=== PATIENT | female | born 1965 | race Caucasian/White ===

== ENCOUNTER 2021-08-31 11:45 | Observation (INO) | payer OTHER ==
[~2021-08-31] VITALS: Ht 172.7 cm; Wt 100.2 kg
[2021-08-31] MEDS ORDERED: LISINOPRIL10 MG PO (12:49)
--- NOTE | 2021-08-31 15:39 | EKG ---
[facility] [address] [facility] [place], [place] [address] Signed Normal sinus rhythm Left anterior fascicular block Left ventricular hypertrophy with QRS widening ( R in aVL , Stewart product ) T wave abnormality, consider lateral ischemia Prolonged QT Abnormal ECG No previous ECGs available Confirmed by ZUHAIR HARLEY MD ([id number]) on 08/31/2021 3:39:03 PM Electronically Signed By: ZUHAIR HARLEY MD 08/31/21 1539 PATIENT NAME: CAROL FERNANDEZ JUAN RAMON Electrocardiogram DATE OF : 63 PHYSICIAN: ZUHARI HARLEY MD REPORT #: [id number] REPORT IS CONFIDENTIAL AND NOT TO BE RELEASED WITHOUT AUTHORIZATION
--- NOTE | 2021-08-31 16:10 | NUR ---
PT ADMITTED TO THE FLOOR FROM THE ER, WAITING FOR DR HUANG TO SEE, COMPLAINING OF ABD PAIN, PRN DILAUDID GIVEN, NS @125, EDUCATED PRAWN TRAWLER HAND LIGHT AND SAFTEY PRECAUTIONS DENIES ANY NEEDS
--- NOTE | 2021-08-31 17:00 | NUR ---
Dr morley in room rounding on pt.
--- NOTE | 2021-08-31 19:00 | NUR ---
dr morley called and notified of pt temp 102, tylenol administered , no new orders .
--- NOTE | 2021-08-31 19:10 | NUR ---
SHIFT REPORT RECEIVED FROM DAYSHIFT LUIS FERNANDO GARCIA AT BEDSIDE. pt RESTING IN BED, EYES CLOSED. RR EVEN AND UNLABORED, NO DISTRESS NOTED. AWOKE TO VOICE. DENIES PAIN AT IV SITE, IV FLUIDS INFUSING DIRECTED. CALL LIGHT IN REACH. NO FURTHER NEEDS VERBALIZED.
--- NOTE | 2021-08-31 21:17 | NUR ---
IN ROOM TO ADMINISTER EVENING MEDICATIONS FOR PRIMARY RN JESSICA. VS TAKEN AND ENTERED PRIMARY RN NOTIFIED OF TEMP, INSTRUCTED PT HOW TO USE I.S. VASOTEC ADMINISTERED IV DILUTIED SLOW PUSH OVER 5 MIN. PT ALSO REPORTS PAIN 6/10, ADMINISTERED 0.5MG IV DILUADID DILUTED SLOW PUSH. FRESH ICEWATER PROVIDED AND PT DENIES FURTHER NEEDS. CALL LIGHT IS CLOSE.
--- NOTE | 2021-08-31 22:40 | NUR ---
assessment complete, scheduled meds already given by chargeback specialistjuan smith. pt recently given prn pain medication, appears comfortable and relaxed at this time, no distress noted. face flushed, pt reports she has somewhat flsuhed face at baseline, will monitor. temp remains elevated but lowering, will monitor. prn tylenol given prior to shift change. iv site wnl, iv fluids and potassium rider both infusing as directed.
--- NOTE | 2021-08-31 22:45 | NUR ---
DR HUANG MADE AWARE OF ELEVATED TEMP, MOST RECENT 100.8. TELEPHONE ORDERS READ BACK FOR PO MOTRIN 800 MG Q6HPRN FOR TEMP AND 30MG IV TORADOL Q8H PRN FOR TEMP/PAIN. ALSO RECEIVED TELEPHONE ORDERS READ BACK FOR SET OF BLOOD CULTURES. pt RECEIVING POTASSIUM RIDER 60MG IV, APPROX 40MG IV HAVE INFUSED, PER POLICY ROUTINE DRAW ORDERED. LAB TO COLLECT. pt UPDATED W/ POC, INSPECTOR FILTER TIPLUIS FERNANDO HANNA ALSO UPDATED.
--- NOTE | 2021-09-01 00:10 | NUR ---
pt NPO AT THIS TIME. DIET ORDER UPDATED. SCRAP WORKER AWARE.
--- NOTE | 2021-09-01 00:39 | NUR ---
prn pain medication given for 7/10 abd pain, see emar. no further neds or concerns verbalized. temp rechecked, result of 99.9.
--- NOTE | 2021-09-01 01:14 | NUR ---
ROUNDED ON pt, pt RESTING IN BED WITH EYES CLOSED. RR EVEN AND UNLABORED. NO DISTRESS NOTED, ON RA. IV SITE REMAINS WNL, FLUIDS INFUSING DIRECTED. CALL LIGHT IN REACH.
--- NOTE | 2021-09-01 03:15 | NUR ---
in room to medicate pt. due to pt being NPO and temp fluctating asked patient if we can give her a tylenol suppository. pt immediately declines this.
--- NOTE | 2021-09-01 04:08 | NUR ---
NEW BAG IV FLUIDS HUNG AND INFUSING DIRECTED, IV SITE REMAINS WNL. pt EDUCATED ON POC REGARDING PRN SUPP TYLENOL AND TEMP FLUCUATIONS- INFORMED BY MANDIE GOULD pt REFUSED PRN SUPP TYLENOL. WILL MONITOR AND RECHECK VS, THEN REASSESS NEED. pt AGREES TO POC. NO FURTHER NEEDS, pt REPORTS MINIMAL PAIN R/T HEADACHE. COOL RAG PROVIDED TO FOREHEAD.
--- NOTE | 2021-09-01 04:40 | NUR ---
rounded on pt, temp improving and lowering- now 99.3. will hold on prn tylenol at this time and continue to monitor. call light in reach.
--- NOTE | 2021-09-01 05:00 | NUR ---
assessment complete, no acute changes. pt reports pain improved and describes as tolerable and rates at 4/10, denies need for apin medication. some abd tenderness noted, denies nasuea. iv site remains wnl. no further need, pt remains npo. call light in reach.
--- NOTE | 2021-09-01 06:12 | NUR ---
preproedure checklist started and lr with straight tubing primed and hanging in room for procedure.
--- NOTE | 2021-09-01 06:18 | CONS ---
[facility] [address] [place], [place] [address] Signed DATE OF CONSULTATION: 08/31/2021 CHIEF COMPLAINT: Epigastric and right upper quadrant abdominal pain. HISTORY OF PRESENT ILLNESS: Carol is a 56-year-old obese female, who awoke at about 2 in the morning with epigastric pain and right upper quadrant abdominal pain radiating through to her back. She was having nausea and vomiting. They had eaten rotisserie chicken that night for supper. They thought maybe it was food poisoning. She came to emergency room finally for evaluation when her symptoms would not lalitha. Her white count was borderline at 10.8 and her potassium was low at 3.0 from the vomiting. The bilirubin was fine, but the AST and ALT were a little elevated, the alkaline phosphatase was 86, albumin is 3.8, and lipase is good at 42. COVID test is negative. Chest x-ray unremarkable, but the ultrasound showed that the gallbladder was a little distended, although the gallbladder wall is not particularly thickened. There is some sludge in her gallbladder and common bile duct just a little dilated at 7.8 mm. I have been asked to admit her as a general surgeon on-call. In the meantime, she has received Levaquin and Flagyl and some Dilaudid. Overall, she is feeling better. She said her mouth is still dry and she still feels dehydrated. Her boyfriend of 17 years is in the room along with her sister. PAST MEDICAL HISTORY: Hypertension, obesity, and lumbago following a fall. PAST SURGICAL HISTORY: Includes the D and C. SOCIAL HISTORY: She does not smoke. She has a few drinks on the weekend. She uses some CBD products for her chronic back pain. Her boyfriend is Jasbir at [phone] and her sister is Ashli Robles at [phone]. Her primary care provider is Elana Dinh. 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 FAMILY HISTORY: Mom has non-Hodgkin's lymphoma. REVIEW OF SYSTEMS: She had 10 systems reviewed and she mentioned the chronic pain in her back after falling down some stairs. ALLERGIES: Penicillin, Augmentin, and sulfa. Electronically Signed By: PATRICK HUANG MD 09/01/21 0618 PATIENT NAME: CAROL FERNANDEZ CONSULTATION DATE OF : 63 REPORT #: [id number] PHYSICIAN: PATRICK HUANG MD PCP: ELANA DINH PAC REPORT IS CONFIDENTIAL AND NOT TO BE RELEASED WITHOUT AUTHORIZATION [facility] [address] [place], [place] [address] Signed MEDICATIONS: Lisinopril 10 mg p.o. daily. PHYSICAL EXAMINATION: VITAL SIGNS: Her blood pressure is 156/76, heart rate 86, respiratory rate 20, temperature is 99.9. She is 96% on room air. She is 5 feet 8 inches at 100 kg. GENERAL: Carol is a 56-year-old female, who currently is lying supine in sleeping in her hospital bed. Her boyfriend, Jasbir and her sister, Ashli are in the room. We talked actually for quite sometime before Carol finally woke up with the help of her sister. She has clearly been given some Dilaudid. She said the pain is a little better, but she is quite dehydrated, was asking for some ice chips. LUNGS: Clear to auscultation. HEART: Slightly fast, but not tachycardic. ABDOMEN: Obese, but soft. She does have some tenderness in the right upper quadrant, although not markedly so. LABORATORY DATA: Her white blood count 10.8, neutrophils 90, hemoglobin 14, potassium 3.0, BUN 11, creatinine 0.62. COVID is negative. Total bilirubin 1.0, ALT 61, AST is 126, alkaline phosphatase 86, albumin 3.8. Her lipase is 42. RADIOGRAPHIC STUDIES: Chest x-ray was unremarkable. The ultrasound shows some sludge in the gallbladder, but the gallbladder wall is not thickened, although it is a little dilated. The common bile duct is a little dilated at 7.8 mm. ASSESSMENT AND PLAN: Carol is a 56-year-old obese female, who presents with symptomatic cholecystitis cholelithiasis in the form of sludge. She is dehydrated and clearly has hypokalemia. She is quite a bit more comfortable now with the Dilaudid. I explained to Carol and her family we really need to get her rehydrated and correct the potassium overnight and we will plan on doing her surgery first thing in the morning. I brought with me a brochure on the gallbladder. We have reviewed the brochure in detail including the location and function of the gallbladder. We discussed laparoscopic versus open cholecystectomy. There is risk to the surgery including, but not limited to bleeding, infection, scarring, change in contour of the skin, damage to bowel, damage to main bile duct, incisional hernias and other unforeseen comorbidities. They have expressed understanding and agreed to above plan. Patrick Huang MD Electronically Signed By: PATRICK HUANG MD 09/01/21 0618 PATIENT NAME: CAROL FERNANDEZ CONSULTATION DATE OF : 63 REPORT #: [id number] PHYSICIAN: PATRICK HUANG MD PCP: ELANA DINH REPORT IS CONFIDENTIAL AND NOT TO BE RELEASED WITHOUT AUTHORIZATION [address] [place], [place] [address] Signed ALB/MODL /[id number] cc: MD Elana Haas PA-C Copies: PATRICK HUANG MD, ERIKA PAC ~ Electronically Signed By: PATRICK HUANG MD 09/01/21 0618 PATIENT NAME: CAROL FERNANDEZ CONSULTATION DATE OF : 63 REPORT #: [id number] PHYSICIAN: PATRICK HUANG MD PCP: ELANA DINH PAC REPORT IS CONFIDENTIAL AND NOT TO BE RELEASED WITHOUT AUTHORIZATION
--- NOTE | 2021-09-01 06:20 | NUR ---
dr morley in room with pt. made aware of pt's trending temp after motrin administration. am potassium pending, aware and updated on voids this shift (700 plus 600).
--- NOTE | 2021-09-01 06:45 | NUR ---
IN TO ASSIST PT WITH PRE-OP [place], NEW LINENS ON THE BED, PT BACK TO BED, NO FURTHER NEEDS AT THIS TIME
--- NOTE | 2021-09-01 07:04 | NUR ---
pt TAKEN OFF [facility] FLOOR AND HEADING TO OR FOR SURGERY. 0800 FLAGYL PULLED AND GIVEN TO MECHANICAL SYSTEMS CONTROL ENGINEER LA PER RN REQUEST.
--- NOTE | 2021-09-01 07:15 | NUR ---
report recieved from physician compensation analyst RN, pt off the floor for surgery.
--- NOTE | 2021-09-01 10:02 | NUR ---
09/01/21 Melina Gallego 0915- PT ARRIVES TO PACU NONAROUSABLE TO NOXIOUS STIMULI WITH AN OPA IN PLACE. RESP RAPID AND SHALLOW. PT ALSO HAD NOISE COMING FROM THE AIRWAY THAT DID NOT CLEAR WITH A JAW THRUST. OXYGEN SAT HIGH 80'S ON 10L VIA MASK. OXYGEN TURNED UP TO 15L VIA MASK. EXPIRATORY WHEEZE HEARD IN THE BILATERAL LOWER LUNG ORTIZ. LOADING INSPECTOR AT THE BEDSIDE AND AWARE. NEW ORDERS RECEIVED. JAW THRUST BEING MAINTAINED TO KEEP AIRWAY OPEN.
--- NOTE | 2021-09-01 10:20 | NUR ---
pt back from surgery, slighly drowsy on 3L nc, awakens to family memebers in room, 3lap sites covered with 2*2 and silk tape, R upper quadrant kenny drain, no pain at the moment. lungs clear, bowels active restarted on her iv fluids, morning medications given.
--- NOTE | 2021-09-01 11:14 | NUR ---
POST OP VITALS DUE. THIS RN TO ROOM TO ASSIST PER PTS PRIMARY RN'S REQUEST. PT ALERT AND OREINTED. PT TALKING WITH FAMILY. PT DENIES PAIN AND NASUEA AT THIS TIME. VITAL SIGNS STABLE. PT WEANED TO 2L O2 BY NC WITH OXGYEN SATUARTIONS REMAINING ABOVE 94%. PT DEMONSTRATES USE OF I.S. REACHING 1250ML X5. PT EDUCATION DONE REGARDING POST OF CARE AND LIFTING RESTRICTIONS. PT DENIES ADDITIONAL REQUESTS OR COMPLAINTS. CALL LIGHT WITHIN REACH. BED RAILS UP.
--- NOTE | 2021-09-01 12:20 | NUR ---
RN IN ROOM TO DO POST OP VITAL SIGNS, PT ASSITED UP TO THE BATHROOM ABLE TO VOID 800, FRESH ICE PACK PROVIDED, CLEAR LIQUID TRAY PROVIDED, STATES PAIN IS UNDER CONTROL.
--- NOTE | 2021-09-01 13:23 | NUR ---
POST OP VITALS COMPLETED AND WNL. PT DENIES PAIN OR NASUEA. CLEAR LIQUID TRAY IN FRONT OF PT. ICE TO ABDOMEN. DRESSING X4 TO ABDOMEN AND C/D/I WITH SCANT SHADOWING. CALL LIGHT IN REACH
--- NOTE | 2021-09-01 13:45 | NUR ---
Spoke with pt and she lives in a 2 story home with her laundry in the basement. She has had rails and does not have issues with stairs. Daughter and sister will help her if needed. She denies financial issues. Plans on dc to home when cleared medically.
--- NOTE | 2021-09-01 14:30 | NUR ---
rn in room to round on pt, sitting up in bed drinking beef broth, assited to get up to the bathroom, kenny drain dressing changed as pt was leaking, 2 split gauze and tegaderm placed, prn motrin provided
[2021-09-01] MEDS ORDERED: ALPRAZOLAM ER0.5 MG PO (14:47)
[2021-09-01] MEDS ORDERED: LISINOPRIL-HCT1 EAC2 PO (14:47)
[2021-09-01] MEDS ORDERED: CLINPRO 5000113 GM MM (14:48)
[2021-09-01] MEDS ORDERED: VITAMIN D3125 MCG PO (15:27)
[2021-09-01] MEDS ORDERED: CO Q-10100 MG PO (15:32)
[2021-09-01] MEDS ORDERED: ZINC GLUCONATE100 MG PO (15:32)
[2021-09-01] MEDS ORDERED: FLAX SEED OIL1 EACH PO (15:33)
[2021-09-01] MEDS ORDERED: MILK THISTLE150 MG PO (15:38)
[2021-09-01] MEDS ORDERED: [UNRECOGNIZED DRUG - OTHER] PO (15:38)
[2021-09-01] MEDS ORDERED: ZYRTEC10 MG PO (15:39)
[2021-09-01] MEDS ORDERED: MAGNESIUM400 M1 PO (15:39)
[2021-09-01] MEDS ORDERED: TART CHERRY CA1 EACH PO (15:40)
[2021-09-01] MEDS ORDERED: FOLTANX TABLET1 EACH PO (15:49)
[2021-09-01] MEDS ORDERED: VITAMIN B-650 MG PO (15:49)
--- NOTE | 2021-09-01 15:50 | NUR ---
MED REC COMPLETE
--- NOTE | 2021-09-01 18:00 | NUR ---
RN REPORTED BY LUIS FERNANDO TONG PT COMPLAINING OF MORE PAIN, PRN NORCO PROVIDED , PT RESTING IN BED, INCISONS CDI, NO NAUSEA AT THE MOMENT, UP TO THE BATHROOM. NO OTHER NEEDS AT THE MOMENT
--- NOTE | 2021-09-01 19:25 | NUR ---
BEDSIDE REPORT FROM JOSE GOULD, PT ALERT AND ORIENTED. SHE HAS NO COMPLAINTS ASKED FOR MORE ICE WATER, THIS IS PROVIDED. SHE HAS BEEN INDEPENDENT TO THE BATHROOM.
--- NOTE | 2021-09-01 19:49 | NUR ---
PT'S IV PUMP WAS BEEPING, IT IS NOW INFUSING FINE. PROVIDED FRESH ICEWATER FOR PT AND SHE DENIES FURTHER NEEDS. PT STATES SHE IS ENJOYING HER STAY HERE. CALL LIGHT IS CLOSE.
--- NOTE | 2021-09-01 20:54 | NUR ---
IN ROOM TO HANG NEW BAG OF D5LR@100MLS/HR. PT DENIES FURTHER NEEDS. CALL LIGHT IS CLOSE.
--- NOTE | 2021-09-02 01:22 | NUR ---
PT CALLED NURSES STATION DUE TO IV PUMP BEEPING, JESSICA RN INTO ASSESS, IV PUMP BATTERY FAILURE. NEW IV PUMP OBTAINED AND SET.
--- NOTE | 2021-09-02 07:11 | OR ---
[facility] [address] [place], [place] [address] Signed DATE OF OPERATION: 09/01/2021 SURGEON: Patrick Huang MD PREOPERATIVE DIAGNOSIS: Kseqc-es-mysaqwt cholecystitis, cholelithiasis, and sludge. POSTOPERATIVE DIAGNOSIS: Fqizc-dx-qhvyecu cholecystitis, cholelithiasis, and sludge. PROCEDURES: 1. Laparoscopic cholecystectomy without intraoperative cholangiogram (prolonged and difficult at 1 hour and 25 minutes). 2. Subhepatic drain placement. ESTIMATED BLOOD LOSS: Minimal. FINDINGS: Carol indeed had severe ribgf-cq-ebhlqie cholecystitis. She had one stone about 12 mm in diameter lodged in the neck of the gallbladder. In that regard, her bile was completely clear without any pigment whatsoever. She had tremendous inflammatory changes throughout the entire gallbladder and triangle of Calot. Consequently, we abandoned the intraoperative cholangiogram. We needed an additional nurse to scrub in with an additional port and fan retractor to access the triangle of Calot. It took 1 hour and 25 minutes to complete the surgery in a very slow meticulous manner. This was well over 25 minutes longer than usual. In this way, her procedure was prolonged and difficult. INDICATIONS: Carol is a 56-year-old obese female, who developed at least a 1-day history of epigastric and right upper quadrant abdominal pain with nausea and vomiting. Her symptoms would not lalitha, so she came to emergency room for evaluation. Her white count was 10.8, but she had a left shift with neutrophils of 90. Her potassium was low at 3.0 from her vomiting. COVID was negative. Total bilirubin was 1, but the AST was 61, ALT 126, alkaline phosphatase is 86, albumin 3.8, and lipase 42. Chest x-ray was unremarkable. She certainly was tender in the right upper quadrant, ultrasound confirmed sludge in the gallbladder. Common bile duct seemed to be slightly dilated at 7.8 mm. The gallbladder wall did not appear to be overtly thickened. There was some mild pericholecystic inflammatory changes in her fluid. I have been asked to admit her Electronically Signed By: PATRICK HUANG MD 09/02/21 0711 PATIENT NAME: CAROL FERNANDEZ OPERATIVE REPORT DATE OF : 63 REPORT #: [id number] PHYSICIAN: PATRICK HUANG MD PCP: CRISS DELACRUZ PAC REPORT IS CONFIDENTIAL AND NOT TO BE RELEASED WITHOUT AUTHORIZATION [facility] [address] [place] [id number] Signed last night as a general surgeon on-call. I met with Carol and her family last night to include her boyfriend and her sister, Ashli. I brought with me a brochure and we reviewed the above findings in the brochure in detail. We discussed laparoscopic versus open cholecystectomy. We reviewed the expected intraop and postop course. There is risk including, but not limited to bleeding, infection, scarring, change in contour of the skin, damage to bowel, damage to main bile duct, incisional hernias and other unforeseen comorbidities. Overnight, she was given Levaquin and Flagyl and hydrated with lactated Ringer's along with additional infusion of potassium. Even this morning, her potassium had not corrected; however, she looked and felt much better. After conferring with her and our OR team include our anesthesia provider, we decided we would bring her down this morning for our first case for her surgery. She had expressed understanding and wished to proceed. DESCRIPTION OF PROCEDURE: Craol had been taken in the operating room and placed in the supine position under general endotracheal tube anesthesia. She was already on preoperative Lovenox along with her SCDs. She already had her Levaquin and Flagyl. We gave her additional doses as we went through the case. She had been prepped and draped in the usual sterile fashion. One could feel the gallbladder after she was pharmacologically paralyzed just below the right subcostal margin. We placed all trocars in our usual positions. Her sister asked me to look down in the right lower quadrant with the camera, that was all quite healthy-appearing and seemed to be uninvolved. After this, we had to carefully elevate the gallbladder into the right upper quadrant, it was quite tense. We created a small hole near the top with our cautery and suctioned out copious amounts of clear liquid thick bile. We found that she did indeed have just one stone in the neck of her gallbladder, it was probably 12 mm in diameter. We had to bring another nurse to help with retraction. We introduced our fan retractor through the midline in the epigastric area. We also placed an orogastric tube to draw the air out of her stomach, so we could better visualize the very inflamed triangle of Calot. We very carefully and meticulously dissected out the triangle of Calot until we were quite confident we had the cystic duct isolated. We had placed a couple of clips across the cystic artery and it had been divided. Because of the tremendous inflammatory changes and the short amount of cystic duct, we had dissected free, we decided not to pursue the cholangiogram at this time. We placed three sequential clips across the cystic duct. Each clip went completely across the cystic duct. We then carefully divided the cystic duct sharply with the scissors. We were quite confident in this regard. We then very carefully and slowly dissected out the gallbladder from the gallbladder fossa. There were tremendous inflammatory changes and it took extra time. Eventually, we had the gallbladder completely free and we placed it into an EndoCatch bag. We then irrigated and suctioned out the right upper quadrant until mostly clear. We placed a #10 flat Rogerio drain along the area of the cystic duct stump and we brought it out through the right most lateral 5 mm trocar site. We then used our laparoscopic suturing device to pass 0-Vicryl suture Electronically Signed By: PATRICK HUANG MD 09/02/21 0711 PATIENT NAME: CAROL FERNANDEZ OPERATIVE REPORT DATE OF : 63 REPORT #: [id number] PHYSICIAN: PATRICK HUANG MD PCP: CRISS DELACRUZ PAC REPORT IS CONFIDENTIAL AND NOT TO BE RELEASED WITHOUT AUTHORIZATION [address] [address] Signed on either side of the fascia of the subxiphoid in the mid epigastric trocar sites. These were tied down to close the fascia primarily. After this, all the gas was allowed to escape and the remaining two trocars were removed. We had passed the gallbladder off the table for photodocumentation. We then closed the fascia of the supraumbilical trocar site with interrupted [id number] and simple 0-Vicryl sutures. Local anesthetic was injected in all trocar sites. Each trocar site was irrigated and suctioned out until clear. We closed the skin and dermis of each trocar site with interrupted 3-0 subcuticular Monocryl sutures. Dry gauze and tape were applied to all incisions. We used a 2-0 nylon suture to hold the drain in place at the level of the skin. After this, she was awakened from anesthesia, extubated in the OR, and taken to the recovery in stable condition. Patrick Huang MD ALB/MODL /[id number] cc: MD Criss Haas PA-C Patient's Chart Copies: PATRICK HUANG MD, ERIKA PAC ~ Electronically Signed By: PATRICK HUANG MD 09/02/21 0711 PATIENT NAME: CAROL FERNANDEZ OPERATIVE REPORT DATE OF : 63 REPORT #: [id number] PHYSICIAN: PATRICK HUANG MD PCP: CRISS DELACRUZ REPORT IS CONFIDENTIAL AND NOT TO BE RELEASED WITHOUT AUTHORIZATION
--- NOTE | 2021-09-02 07:15 | NUR ---
bedside report recieved from night custodian RN, pt resting in bed, remains on continous pulse oximeter, room air 96%, call light within reach no needs at the moment
[2021-09-02] MEDS ORDERED: HYDROCODON-ACE1 EAC8 PO (08:26)
[2021-09-02] MEDS ORDERED: LEVOFLOXACIN500 MG PO (08:27)
--- NOTE | 2021-09-02 08:30 | NUR ---
RN IN ROOM TO DO MORNING ASSESMENT AND MEDICATIONS PT RESTING IN BED, DENEIS PAIN AT THE MOMENT JUST SORE, OFFERED SOFT DIET OPTIONS FOR BREAKFAST, ONLY WANTS TOAST, PLAN FOR DC TODAY AFETR IV ABX AND ELECTROLYTE REPLACEMENT.
[2021-09-02] MEDS ORDERED: METRONIDAZOLE500 MG PO (08:36)
[2021-09-02] MEDS ORDERED: MOTRIN IB200 M1 PO (08:37)
[2021-09-02] MEDS ORDERED: PAIN RELIEVER325 MG PO (08:38)
--- NOTE | 2021-09-02 09:48 | NUR ---
PATIENT IN BED RESTING AT THIS TIME, VISITOR IN ROOM. VITALS AND I&O'S CHARTED. PATIENT COMPLAINS OF A LITTLE PAIN AROUND BARBARA DRAIN SITE, RN NOTIFIED. AM CARE AND ORAL CARE SUPPLIES PROVIDED IN BATHROOM, PATIENT IND. CALL LIGHT IN REACH. NO FURTHER NEEDS AT THIS TIME.
--- NOTE | 2021-09-02 12:40 | NUR ---
rn in room to go over pt dc instructions, education provided for drain care and incision care, sister at bedside and all questions answred
--- NOTE | 2021-09-04 08:39 | DS ---
[facility] [address] [place], [place] [address] Signed ADMISSION DATE: 08/31/2021 DISCHARGE DATE: 09/02/2021 FINAL DIAGNOSES: 1. Severe acute on chronic cholecystitis and cholelithiasis. 2. Anemia. 3. Hypokalemia. 4. Hypomagnesemia. PROCEDURES: 1. Laparoscopic cholecystectomy without intraoperative cholangiogram. 2. Subhepatic drain placement. HISTORY OF PRESENT ILLNESS: Carol is a 56-year-old obese female, who fell over her dogs and went down the stairs last fall and injured her back. She has been having back pain since that time. She has had persistent back pain higher up in the right shoulder blade area. She finally developed nausea and vomiting and epigastric and right upper quadrant abdominal pain as well. She came to the emergency room for evaluation. In the emergency room, she was tender in the right upper quadrant with a left shift with slight increase in her liver function test. Ultrasound confirmed what appeared to be sludge in her gallbladder but the gallbladder wall did not appear particularly thickened. The common bile duct seemed to be a little dilated at 7.8 mm. No mention of any stones. I have been asked to admit her as a general surgeon on-call. She had been given Levaquin and Flagyl and Dilaudid in the emergency room. HOSPITAL COURSE: Carol had been admitted as above. I met with Carol and her family in the evening. She was quite dehydrated and her potassium was low. We hydrated her overnight and gave her IV potassium. By morning, she was much better, although the potassium really had not changed much. I think her potassium is fairly low from all of her vomiting. We then took her to the operating room that morning. She underwent a very difficult and prolonged surgery to remove her rather severely inflamed gallbladder. We did not perform an intraoperative cholangiogram due to the tremendous inflammatory changes in the triangle of [place]. We did place a drain. She clearly had acute on chronic cholecystitis. There was one large stone in the neck of the gallbladder. She did well both intraop and postop. This morning, she is markedly improved. Of course, the potassium is still low and her magnesium is a bit low. We will go ahead and supplement that today with oral tablets. She is a little puffy from all of her IV fluids, but overall is much better hydrated. Her hemoglobin is a little low as well. She is tolerating her clear liquids and is having good pain control with her [place]. All Electronically Signed By: PATRICK HUANG MD 09/04/21 0839 PATIENT NAME: CAROL FERNANDEZ DISCHARGE SUMMARY DATE OF : 63 REPORT #: [id number] PHYSICIAN: PATRICK HUANG MD PCP: CRISS DELACRUZ PAC REPORT IS CONFIDENTIAL AND NOT TO BE RELEASED WITHOUT AUTHORIZATION [address] [address] Signed incisions are healing well. The abdominal exam is completely benign. At this point, we are going to discharge her to home with her drain in place. She has a thin serosanguineous fluid out from her drain. DISCHARGE PLANS AND MEDICATIONS: Carol is going to be discharged to home with a prescription for [place] 10/325 one tablet p.o. q.6 hours p.r.n. for severe postoperative pain. Dispense 25 tablets with no refills. She will be given Levaquin 500 mg p.o. daily and Flagyl 500 mg p.o. t.i.d. for five days. She can supplement with Tylenol, ibuprofen, Aleve for [id number] postoperative pain. She can continue her lisinopril at home. Her incisions will be left open to air. She will shower and bathe as usual. She can perform her activities of daily living including walking up and down stairs and showering and bathing as usual. She should not do any heavy pushing, pulling, or lifting over about 20 pounds. She is not ready to return to work. She is welcome to do a little work on her computer at home. The nurses will help her with drain care and recording the drain output each day. She will return to the office in 7 to 10 days for followup. She has expressed understanding and agrees with the above plan. Patrick Huang MD ALB/MODL /[id number] cc: MD Criss Haas PA-C Copies: PATRICK HUANG MD, ERIKA PAC ~ Electronically Signed By: PATRICK HUANG MD 09/04/21 0839 PATIENT NAME: CAROL FERNANDEZ DISCHARGE SUMMARY DATE OF : 63 REPORT #: [id number] PHYSICIAN: PATRICK HUANG MD PCP: CRISS DELACRUZ REPORT IS CONFIDENTIAL AND NOT TO BE RELEASED WITHOUT AUTHORIZATION
--- NOTE | 2021-09-05 14:37 | PATH ---
[facility] [address] [facility] [place], [place] [address] Signed SPECIMEN(S): A GALLBLADDER SPECIMEN SOURCE: A. GALLBLADDER CLINICAL HISTORY: Cholecystitis, cholelithiasis. FINAL PATHOLOGIC DIAGNOSIS: Gallbladder, cholecystectomy: - Acute on chronic cholecystitis with mucosal necrosis. - Cholesterolosis. NAL:cml:C2NR MICROSCOPIC EXAMINATION: Histologic sections of all submitted blocks are examined by light microscopy. These findings, together with the gross examination, support the pathologic diagnosis. GROSS DESCRIPTION: The specimen, labeled "LS," and designated on the requisition "gallbladder," is received in formalin and consists of: Specimen: Previously opened gallbladder. Dimensions: 8.6 x 4.4 cm. Serosa: Violaceous and smooth/ragged areas. Cystic Duct: Unobstructed. Calculi: Not grossly identified. Mucosa: [place] and dark brown with roughened appearance; possible devitalized areas. Wall thickness: Up to 0.6 cm. Lymph node: No pericystic lymph nodes are grossly identified. Additional: None. [place] sections are submitted in cassette (A1). AT (under the direct supervision of a pathologist) The Gross Description was prepared using a voice recognition system. The report was reviewed for accuracy; however, sound-alike word errors, addition and/or deletions may occur. If there is any question about this report, please contact Client Services. PERFORMING LABORATORY: The technical component was performed by [employer], [facility] Juan Ortega, PATIENT NAME: CAROL FERNANDEZN PATHOLOGY DATE OF : 63 REPORT #: [id number] PHYSICIAN: WILLIAMS KING PCP: ELANA DELACRUZ PAC REPORT IS CONFIDENTIAL AND NOT TO BE RELEASED WITHOUT AUTHORIZATION [facility] [address] [place], [place] [address] [place] [address] (Legal Support Analyst: Lali Cheng MD; CLIA# [id number]). [facility] [address] [address] (CLIA# [id number]). Diagnostician: Kalie Saab MD Pathologist Electronically Signed 09/05/2021 Copies: ~ PATIENT NAME: CAROL FERNANDEZ PATHOLOGY DATE OF : 63 REPORT #: [id number] PHYSICIAN: WILLIAMS KING PCP: ELANA DELACRUZ PAC REPORT IS CONFIDENTIAL AND NOT TO BE RELEASED WITHOUT AUTHORIZATION
== END 2021-09-02 13:00 | disposition home or self-care (01) ==
LOC: ED 11:45 → MS 11:47
PROVIDERS: ADMIT Colon & Rectal Surgery; ATTEND Colon & Rectal Surgery
PROC: 0FT44ZZ Resection of Gallbladder, Percutaneous Endoscopic Approach (ICD-10-PCS; principal; 2021-09-01 07:30)
DX: K80.12 Calculus of gallbladder with acute and chronic cholecystitis without obstruction (principal); I10 Essential (primary) hypertension; E66.9 Obesity, unspecified; E86.0 Dehydration; E87.6 Hypokalemia; D64.9 Anemia, unspecified; E83.42 Hypomagnesemia; Z88.0 Allergy status to penicillin; Z88.1 Allergy status to other antibiotic agents; Z88.2 Allergy status to sulfonamides; Z88.8 Allergy status to other drugs, medicaments and biological substances; Z20.822 Contact with and (suspected) exposure to COVID-19
CPT/HCPCS: 00790; 36415; 71045; 76705; 80053; 83690; 83735; 84100; 84132; 84484; 85025; 93005; 93010; 96365; 96366; 96372; 96375; 96376; 99285-25; A9270; C9113; C9803; G0378; J0131; J1100; J1170; J1650; J1885; J1956; J2250; J2405; J2704; J3010; J3480; J7030; J7060; J7121; U0003

== ENCOUNTER 2022-07-27 09:54 | Day surgery (SDC) | payer OTHER ==
[~2022-07-27] VITALS: Ht 172.7 cm; Wt 86.2 kg
[~2022-07-27 09:54] MED LIST: ALPRAZOLAM ER0.5 MG PO; CLINPRO 5000113 GM MM; CO Q-10100 MG PO; FLAX SEED OIL1 EACH PO; FOLTANX TABLET1 EACH PO; HYDROCODON-ACE1 EAC8 PO; LEVOFLOXACIN500 MG PO; LISINOPRIL-HCT1 EAC2 PO; LISINOPRIL10 MG PO; MAGNESIUM400 M1 PO; METRONIDAZOLE500 MG PO; MILK THISTLE150 MG PO; MOTRIN IB200 M1 PO; PAIN RELIEVER325 MG PO; TART CHERRY CA1 EACH PO; VITAMIN B-650 MG PO; VITAMIN D3125 MCG PO; ZINC GLUCONATE100 MG PO; ZYRTEC10 MG PO; [UNRECOGNIZED DRUG - OTHER] PO
[2022-07-27] MEDS ORDERED: CO Q-10100 MG PO (10:14)
[2022-07-27] MEDS ORDERED: QUERCETIN500 MG PO (10:15)
[2022-07-27] MEDS ORDERED: MILK THISTLE150 MG PO (10:16)
[2022-07-27] MEDS ORDERED: ON GUARD (10:17)
[2022-07-27] MEDS ORDERED: [UNRECOGNIZED DRUG - OTHER] (10:18)
[2022-07-27] MEDS ORDERED: TART CHERRY E1000 MG PO (10:19)
[2022-07-27] MEDS ORDERED: VITAMIN E1000 UNI1 PO (10:20)
[2022-07-27] MEDS ORDERED: [UNRECOGNIZED DRUG - OTHER] (10:21)
[2022-07-27] MEDS ORDERED: NEXIUM40 MG PO (10:22)
--- NOTE | 2022-07-27 11:36 | NUR ---
07/27/22 1136 Sultana Sapp 1133 PATIENT ARRIVES TO PACU AWAKE BUT DROWSY. RESP EVEN AND UNLABORED, NC AT 3 LITERS.
--- NOTE | 2022-07-30 08:08 | OR ---
[facility] [address] [place], [place] [address] Signed DATE OF OPERATION: 07/27/2022 SURGEON: Yanely Carney MD PREOPERATIVE DIAGNOSIS: Colon screening. POSTOPERATIVE DIAGNOSIS: Pandiverticulosis. PROCEDURE: Total colonoscopy to cecum. ANESTHESIA: Intravenous sedation fentanyl 150 mcg, Versed 9 mg. INDICATION: This 57-year-old white woman is a patient of PATEL Collins. She is referred for screening colonoscopy. She has no family history of colon cancer and no symptoms of bleeding, diarrhea or constipation. She understands the risk of colonoscopy including but not limited to bleeding, infection, and perforation and wished to proceed. FINDINGS: The prep was quite good. Complete colonoscopy was undertaken of the cecum. She had diverticulosis distributed throughout the colon most dominantly in the sigmoid. There was no evidence of polyps or colitis. PROCEDURE IN DETAIL: The patient was brought to the endoscopy suite and placed in lateral decubitus position. Given intravenous sedation to the point of slurred speech and nystagmus. Digital rectal examination was normal. An Olympus video colonoscope was passed in the rectum and manipulated throughout the colon noting diverticula of the sigmoid and left colon. The scope was ultimately advanced to the cecum. The ileocecal valve and appendiceal orifice were normal. The scope was withdrawn from that point. Examination throughout confirmed scattered diverticulitis throughout the right transverse colon, but more so in the left and sigmoid. Retroflexed view of the rectum was normal. The scope was removed. The patient was taken to the recovery room in good condition. Electronically Signed By: YANELY CARNEY MD 07/30/22 0808 PATIENT NAME: CAROL FERNANDEZ OPERATIVE REPORT DATE OF : 63 REPORT #: [id number] PHYSICIAN: YANELY CARNEY MD PCP: CRISS DINH REPORT IS CONFIDENTIAL AND NOT TO BE RELEASED WITHOUT AUTHORIZATION [facility] [address] [place] [address] [place], [place] [address] Signed CONCLUDING DIAGNOSIS: Diverticulosis. PLAN: Recommend repeat colonoscopy in 10 years, sooner if clinically indicated. We would recommend high-fiber diet as well. She will be given a diverticulosis handbook. MD JOHN Orosco/EDY /[id number] cc: Criss Dinh PA-C Copies: CRISS DINH ~ Electronically Signed By: YANELY CARNEY MD 07/30/22 0808 PATIENT NAME: CAROL FERNANDEZ OPERATIVE REPORT DATE OF : 63 REPORT #: [id number] PHYSICIAN: YANELY CARNEY MD PCP: CRISS DINH PAC REPORT IS CONFIDENTIAL AND NOT TO BE RELEASED WITHOUT AUTHORIZATION
== END 2022-07-27 12:45 | disposition home or self-care (01) ==
LOC: DS 09:54 → OPS 09:54 → DS 10:50 → OPS 12:45
PROVIDERS: ATTEND Surgery
PROC: 0DJD8ZZ Inspection of Lower Intestinal Tract, Via Natural or Artificial Opening Endoscopic (ICD-10-PCS; principal; 2022-07-27 10:50)
DX: Z12.11 Encounter for screening for malignant neoplasm of colon (principal); I10 Essential (primary) hypertension; K21.9 Gastro-esophageal reflux disease without esophagitis; K57.10 Diverticulosis of small intestine without perforation or abscess without bleeding; Z90.49 Acquired absence of other specified parts of digestive tract; Z79.899 Other long term (current) drug therapy; Z88.0 Allergy status to penicillin; Z88.2 Allergy status to sulfonamides; Z88.8 Allergy status to other drugs, medicaments and biological substances
CPT/HCPCS: 99153; G0500; J2250; J3010